=== PATIENT | male | born 1960 | race Caucasian/White ===

== ENCOUNTER 2025-02-24 02:59 | Inpatient (IN) | payer MEDICARE, OTHER, MEDICAID ==
[2025-02-24] MEDS ORDERED: Ondansetron PF 4 MG/2 ML Vial IVP PRN (06:12)
[2025-02-24] MEDS ORDERED: Acetaminophen 325 MG TAB PO PRN (06:12)
[2025-02-24 06:40] VITALS: BMI 41.0
[2025-02-24 07:06] LABS: Troponin I 0.046 ng/mL (< 0.028)
[2025-02-24] MEDS ORDERED: Azithromycin 500 MG in Sodium Chloride 0.9% 250 ML 250 ML IVPB SCH (08:00)
[2025-02-24] MEDS ORDERED: Electrolyte Replacement Protocol 1 EACH FS SCH (08:30)
[2025-02-24 08:50] LABS: Magnesium 1.9 mg/dL (1.6-2.6)
[2025-02-24] MEDS ORDERED: Enoxaparin 40 MG (0.4 mL) SYRINGE SC SCH (09:00)
[2025-02-24] MEDS: Heparin 5,000 UNITS/ML VIAL SC SCH (10:15)
[2025-02-24] MEDS: Multivit, Therapeutic 1 TAB PO SCH (10:18)
[2025-02-24] MEDS: Azithromycin 250 MG TAB PO SCH (10:19)
[2025-02-24] MEDS: Folic Acid 1 MG TAB PO SCH (10:19)
[2025-02-24] MEDS: Carvedilol 3.125 MG TAB PO SCH ×2 (10:19→17:35)
[2025-02-24] MEDS: Famotidine 20 MG TAB PO SCH (10:19)
[2025-02-24] MEDS: Magnesium 2 GM/50 ML(in water) 2 GM in Premix 1 BAG IVPB SCH (10:20)
[2025-02-24] MEDS: Valsartan 80 MG TAB PO SCH (13:34)
[2025-02-24 15:35] LABS: Troponin I 0.026 ng/mL (< 0.028)
[2025-02-24 15:45] LABS: Cocaine Metabolite Screen Negative (Negative); THC/Cannabinoid Screen PRELIM POSITIVE (Negative); Tricyclic Screen Negative (Negative)
[2025-02-24 18:29] LABS: Troponin I 0.040 ng/mL (< 0.028)
[2025-02-25 04:53] LABS: #Basophils 0.05 10x3/uL (0.0-0.2); #Eosinophils 0.31 10x3/uL (0.0-0.5); #Monocytes 1.04 10x3/uL (0.0-1.1); #Neutrophils 9.18 10x3/uL (1.5-8.4); %Basophils 0.4 % (0.0-2.0); %Eosinophils 2.6 % (0.0-6.0); %Lymphocytes 11.6 % (18.0-47.0); %Monocytes 8.7 % (0.0-10.0); %Neutrophils 76.4 % (40.0-75.0); Hematocrit 45.8 % (38.8-50.0); Hemoglobin 14.8 g/dL (13.5-17.5); Mean Corpuscular Hemoglobin 28.4 pg (27.0-33.0); Mean Corpuscular Volume 87.9 fL (81.2-95.1); Platelet Count 249 10x3/uL (150-450); Red Blood Cell (RBC) Count 5.21 10x6/uL (4.32-5.72); White Blood Cell (WBC) Count 12.00 10x3/uL (3.5-10.5)
[2025-02-25 05:10] LABS: ALT (SGPT) 25 U/L (Less than 45); AST (SGOT) 24 U/L (11-34); Albumin 4.0 g/dL (3.1-4.5); Alkaline Phosphatase 70 U/L (40-110); Anion Gap 17 mmol/L (10-20); BUN (Urea Nitrogen) 37 mg/dL (8.4-25.7); Bilirubin, Total 0.3 mg/dL (0.3-1.2); Calc. Creatinine Clearance 78 mL/min (70-130); Calcium 9.4 mg/dL (7.8-10.44); Carbon Dioxide 23 mmol/L (23-31); Chloride 104 mmol/L (98-107); Globulin 3.4 g/dL (2.4-3.5); Glucose 119 mg/dL (80-115); Magnesium 2.2 mg/dL (1.6-2.6); Potassium 4.9 mmol/L (3.5-5.1); Sodium 139 mmol/L (136-145)
[2025-02-25] MEDS: Valsartan 80 MG TAB PO SCH (08:56)
[2025-02-25] MEDS: PNEUMOC 20-VAL CONJ-DIP CRM/PF 0.5 ML SYRINGE IM ONE (09:04)
[2025-02-26 06:57] LABS: #Basophils 0.03 10x3/uL (0.0-0.2); #Eosinophils 0.23 10x3/uL (0.0-0.5); #Monocytes 1.03 10x3/uL (0.0-1.1); #Neutrophils 7.79 10x3/uL (1.5-8.4); %Basophils 0.3 % (0.0-2.0); %Eosinophils 2.1 % (0.0-6.0); %Lymphocytes 16.6 % (18.0-47.0); %Monocytes 9.4 % (0.0-10.0); %Neutrophils 71.3 % (40.0-75.0); Hematocrit 44.1 % (38.8-50.0); Hemoglobin 14.4 g/dL (13.5-17.5); Mean Corpuscular Hemoglobin 28.9 pg (27.0-33.0); Mean Corpuscular Volume 88.4 fL (81.2-95.1); Platelet Count 247 10x3/uL (150-450); Red Blood Cell (RBC) Count 4.99 10x6/uL (4.32-5.72); White Blood Cell (WBC) Count 10.92 10x3/uL (3.5-10.5)
[2025-02-26 07:11] LABS: Anion Gap 15 mmol/L (10-20); BUN (Urea Nitrogen) 37 mg/dL (8.4-25.7); Calc. Creatinine Clearance 42 mL/min (70-130); Calcium 9.1 mg/dL (7.8-10.44); Carbon Dioxide 23 mmol/L (23-31); Chloride 104 mmol/L (98-107); Glucose 96 mg/dL (80-115); Potassium 5.0 mmol/L (3.5-5.1); Sodium 137 mmol/L (136-145)
[2025-02-26] MEDS: Digoxin 0.125 MG TAB PO SCH (09:33)
[2025-02-26] MEDS: Famotidine 20 MG TAB PO SCH (09:34)
[2025-02-27 03:44] LABS: #Basophils 0.03 10x3/uL (0.0-0.2); #Eosinophils 0.10 10x3/uL (0.0-0.5); #Monocytes 0.84 10x3/uL (0.0-1.1); #Neutrophils 7.06 10x3/uL (1.5-8.4); %Basophils 0.3 % (0.0-2.0); %Eosinophils 1.1 % (0.0-6.0); %Lymphocytes 14.8 % (18.0-47.0); %Monocytes 8.9 % (0.0-10.0); %Neutrophils 74.7 % (40.0-75.0); Hematocrit 43.2 % (38.8-50.0); Hemoglobin 14.2 g/dL (13.5-17.5); Mean Corpuscular Hemoglobin 29.0 pg (27.0-33.0); Mean Corpuscular Volume 88.3 fL (81.2-95.1); Platelet Count 240 10x3/uL (150-450); Red Blood Cell (RBC) Count 4.89 10x6/uL (4.32-5.72); White Blood Cell (WBC) Count 9.45 10x3/uL (3.5-10.5)
[2025-02-27 04:04] LABS: Anion Gap 15 mmol/L (10-20); BUN (Urea Nitrogen) 39 mg/dL (8.4-25.7); Calc. Creatinine Clearance 43 mL/min (70-130); Calcium 9.5 mg/dL (7.8-10.44); Carbon Dioxide 24 mmol/L (23-31); Chloride 104 mmol/L (98-107); Glucose 112 mg/dL (80-115); Potassium 4.7 mmol/L (3.5-5.1); Sodium 138 mmol/L (136-145)
[2025-02-27] MEDS: Valsartan 80 MG TAB PO SCH (09:44)
[2025-02-27] MEDS: Thiamine 100 MG TAB PO SCH (09:45)
[2025-02-28 04:01] LABS: #Basophils Less than 0.03 10x3/uL (0.0-0.2); #Eosinophils 0.06 10x3/uL (0.0-0.5); #Monocytes 1.11 10x3/uL (0.0-1.1); #Neutrophils 8.45 10x3/uL (1.5-8.4); %Basophils 0.2 % (0.0-2.0); %Eosinophils 0.5 % (0.0-6.0); %Lymphocytes 13.4 % (18.0-47.0); %Monocytes 9.9 % (0.0-10.0); %Neutrophils 75.5 % (40.0-75.0); Hematocrit 46.5 % (38.8-50.0); Hemoglobin 15.0 g/dL (13.5-17.5); Mean Corpuscular Hemoglobin 28.6 pg (27.0-33.0); Mean Corpuscular Volume 88.6 fL (81.2-95.1); Platelet Count 231 10x3/uL (150-450); Red Blood Cell (RBC) Count 5.25 10x6/uL (4.32-5.72); White Blood Cell (WBC) Count 11.20 10x3/uL (3.5-10.5)
[2025-02-28 04:13] LABS: Anion Gap 17 mmol/L (10-20); BUN (Urea Nitrogen) 38 mg/dL (8.4-25.7); Calc. Creatinine Clearance 41 mL/min (70-130); Calcium 9.5 mg/dL (7.8-10.44); Carbon Dioxide 25 mmol/L (23-31); Chloride 103 mmol/L (98-107); Glucose 100 mg/dL (80-115); Potassium 4.6 mmol/L (3.5-5.1); Sodium 140 mmol/L (136-145)
[2025-02-28 07:55] VITALS: BP 129/71; TEMP 97.1
== END 2025-02-28 11:20 | disposition home or self-care (01) | DRG 291 ==
LOC: CSHTELE 06:01 → OBSVTOIN 02-25 13:08
PROVIDERS: ADMIT Internal Medicine; ATTEND Internal Medicine
DX: I13.0 Hypertensive heart and chronic kidney disease with heart failure and stage 1 through stage 4 chronic kidney disease, or unspecified chronic kidney disease (principal); I50.23 Acute on chronic systolic (congestive) heart failure; J96.01 Acute respiratory failure with hypoxia; J44.1 Chronic obstructive pulmonary disease with (acute) exacerbation; I47.10 Supraventricular tachycardia, unspecified; I5A Non-ischemic myocardial injury (non-traumatic); I25.10 Atherosclerotic heart disease of native coronary artery without angina pectoris; N18.30 Chronic kidney disease, stage 3 unspecified; F17.210 Nicotine dependence, cigarettes, uncomplicated; F10.10 Alcohol abuse, uncomplicated; F12.10 Cannabis abuse, uncomplicated; F15.10 Other stimulant abuse, uncomplicated; Z99.81 Dependence on supplemental oxygen; Z88.8 Allergy status to other drugs, medicaments and biological substances; Z79.82 Long term (current) use of aspirin; Z79.51 Long term (current) use of inhaled steroids; Z91.148 Patient's other noncompliance with medication regimen for other reason
CPT/HCPCS: 36415; 80048; 80053; 80306; 83735; 84100; 85025; 87070; 87205; 93306; 93923; 94640; 96372; 96374; 96375; 96376; G0378; J1644; J2919; J3411; J3475; J7620; J7626